=== PATIENT | female | born 1975 | race African-American/Black ===

== ENCOUNTER 2018-05-15 08:30 | Outpatient (RCR) | payer OTHER ==
--- NOTE | 2018-05-15 22:15 | Consultation ---
DATE OF CONSULTATION: HYPERBARIC OXYGEN CONSULTATION CONSULTING PHYSICIAN: Ruddy Lewis M.D. REASON FOR EVALUATION: Hyperbaric oxygen. HISTORY OF PRESENT ILLNESS: This is a very pleasant 44-year-old female with an unfortunate medical history of diabetic foot with associated osteomyelitis. The patient has had prior debridement of foot in hopes of preventing amputation. The patient now referred for hyperbaric oxygen evaluation. The patient notes right foot edema. The patient is having ongoing wound care and IV antibiotics via PICC line. PAST MEDICAL HISTORY: Diabetes, hypertension, diabetic foot with osteomyelitis. MEDICATIONS: Reviewed. ALLERGIES: Reviewed. SOCIAL HISTORY: Nonsmoker and nondrinker. REVIEW OF SYSTEMS: Notable for some sinus disease. No chronic congestion. PHYSICAL EXAMINATION: GENERAL: Obese female, comfortable. VITAL SIGNS: Blood pressure 145/90, pulse 85, respiratory rate 17, and temperature 97.8. HEENT: Negative. Tympanic membranes clear. Nasopharynx fairly clear. Oropharynx not injected. NECK: Supple. No adenopathy. LUNGS: Clear. Essentially normal breath sounds. No rhonchi or wheezes. CARDIAC: Normal S1, S2. Regular rate and rhythm. EXTREMITIES: With noted right foot edema with complex multiple wounds noted. IMPRESSION: 1. Right foot osteomyelitis. 2. Diabetic foot. 3. Hypertension. RECOMMENDATION: The patient appears to be an appropriate candidate for hyperbaric oxygen. We would recommend starting with 20 treatments at 90-minute intervals and 2 atmospheres with close followup care, wound care, and IV antibiotics with further recommendation upon completion of the 20 treatments for further hyperbaric oxygen therapy. Ruddy Lewis M.D. DR: [place] JOB#: [id number] CC:
== END 2018-06-03 | disposition home or self-care (01) ==
LOC: WCC 08:30
DX: L97.513 Non-pressure chronic ulcer of other part of right foot with necrosis of muscle (principal); E11.65 Type 2 diabetes mellitus with hyperglycemia; E66.01 Morbid (severe) obesity due to excess calories; Z88.6 Allergy status to analgesic agent; Z88.8 Allergy status to other drugs, medicaments and biological substances; I10 Essential (primary) hypertension; E11.9 Type 2 diabetes mellitus without complications; H54.61 Unqualified visual loss, right eye, normal vision left eye
CPT/HCPCS: 99204